=== PATIENT | male | born 1955 | race Caucasian/White ===

== ENCOUNTER 2016-10-30 11:57 | Day surgery (SDC) | payer OTHER ==
[2016-10-30] VITALS (18 sets, daily range): BP systolic 103–146; BP diastolic 52–84; PULSE 64–83; RESP 16–22; Ht 171.4 cm; Wt 94.0 kg
[~2016-10-30] VITALS: Ht 171.4 cm; Wt 94.0 kg
[~2016-10-30 11:57] MED LIST: ATEN-51; LAMO25TA6; ZOLP5TAB
[2016-10-30] MEDS ORDERED: IODIXANOL LOCM 100 ML BTL ONE (12:56)
[2016-10-30] MEDS ORDERED: LIDOCAINE 1% (MDV) 20 ML INJ ONE (12:56)
[2016-10-30] MEDS ORDERED: ASPI-664 PO (13:11)
[2016-10-30] MEDS ORDERED: LUBI8CAP4 PO (13:12)
[2016-10-30] MEDS ORDERED: CITA-104 PO (13:12)
[2016-10-30] MEDS ORDERED: LIPA1CAP4 PO (13:13)
[2016-10-30] MEDS ORDERED: OMEG1CAP2 PO (13:14)
[2016-10-30] MEDS ORDERED: FESO4TAB PO (13:15)
[2016-10-30] MEDS ORDERED: ALLO100T PO (13:15)
[2016-10-30] MEDS ORDERED: FAMO20TA18 PO (13:16)
[2016-10-30] MEDS ORDERED: FURO20TA PO (13:16)
[2016-10-30] MEDS ORDERED: IND50 PO (13:17)
[2016-10-30] MEDS ORDERED: ISOS60TA PO (13:17)
[2016-10-30] MEDS ORDERED: IPRA4AER INHALATION (13:18)
[2016-10-30] MEDS ORDERED: OMEP40CA6 PO (13:18)
[2016-10-30] MEDS ORDERED: TAMS-14 PO (13:18)
[2016-10-30] MEDS ORDERED: MIDAZOLAM 1 MG/ML 2 ML INJ ONE (15:25)
[2016-10-30] MEDS ORDERED: FENTAnyl 50 MCG/ML VIAL ONE (15:25)
--- NOTE | 2016-10-30 18:32 | OPR ---
DATE OF OPERATION: PREOPERATIVE DIAGNOSIS: Peripheral vascular disease. POSTOPERATIVE DIAGNOSIS: Peripheral vascular disease. OPERATION PERFORMED: 1. Abdominal aortogram. 2. Catheter introduction into the abdominal aorta. 3. Right femoral artery cannulation using ultrasound guidance. 4. Left femoral artery cannulation using ultrasound guidance. 5. Interpretation and supervision of the abdominal aortogram. 6. Third order degree angiogram, left lower extremity. 7. Right lower extremity angiogram. 8. Interpretation and supervision of the angiogram. 9. Conscious sedation for 1 hour. 10. Fluoroscopy. SURGEON: Estela Nath MD ANESTHESIA: Local plus IV sedation. CONSENT: Risks, benefits, complications, alternative therapies explained to the patient and family, consent obtained. OPERATIVE TECHNIQUE: The patient was placed in supine position, prepped and draped in usual sterile fashion. Under ultrasonic guidance, access was gained in the left common femoral vein. Guidewire would not advance. Next, access was gained in the right common femoral vein. Guidewire was advance d without any difficulty. Subcutaneous tissues dilated. A 5-Hebrew sheath was advanced over a guid ewire and the pigtail catheter was advanced into the abdominal aorta. The abdominal aortogram with pelvic angiogram was performed. Next, angiogram of the right lower extremity was done through the [facility]. Next, the catheter was advanced from the left to right and left lower extremity third order degree angiogram was also obtained. Interpretation and supervision of abdominal aortogram revealed abdominal aorta normal. On the right side, common iliac artery was normal. Internal iliac artery, minimal disease. External iliac kalli ry normal. Common femoral artery normal. Profunda normal. Superficial femoral artery minimal dise ase. Popliteal artery above the knee was occluded. There were collaterals from the popliteal arter y above the knee down into what appeared to be a small popliteal artery below the knee, which connec branden to the posterior tibial artery, which was 1.[address] the way down to the ankle. Anterio r tibial artery also reconstituted in the distal leg into the foot. The peroneal artery did not rec onstitute. On the left side, the left common iliac artery was normal. External iliac artery was no rmal. Left internal iliac artery had a 50% stenosis proximally and a 50% stenosis distally. Left p rofunda appeared to have stenosis proximally. Superficial femoral artery had a 90% stenosis proxima lly, but the rest of the superficial femoral artery appeared to be without any significant disease a ll the way down to the popliteal artery right above the knee, which there was an 80% stenosis. The popliteal artery below the knee was normal. Trifurcation showed up. Anterior tibial artery proxima lly was normal. Tibioperoneal trunk appeared to be proximally normal. Anterior tibial artery was a 2 mm vessel, which went all the way down to the foot. Posterior tibial artery was very small vesse l, about 1 mm, with proximal disease, but it reconstituted distally down to the ankle. The peroneal artery also was a small vessel without any significant disease to the foot. At this time, the proc edure was terminated. This patient's most problems are on the right side. He would be needing a by pass surgery from the femoral down to the posterior tibial artery. Discussed with the patient. All questions answered. Dictated By: ESTELA RAMIREZ/NEHEMIAH Conf#: [id number] DID#: [id number]
== END 2016-10-30 21:11 | disposition home or self-care (01) ==
LOC: SDS 11:57
PROVIDERS: ATTEND Thoracic Surgery (Cardiothoracic Vascular Surgery)
DX: I73.9 Peripheral vascular disease, unspecified (principal); I10 Essential (primary) hypertension; E78.5 Hyperlipidemia, unspecified
CPT/HCPCS: 36247; 75630; C1769; C1887; C1894; J1644; J2250; J3010; Q9967; Z7610